=== PATIENT | female | born 1965 | race Two or more races ===

== ENCOUNTER 2020-08-28 05:16 | Emergency (ER) | payer MEDICAID, OTHER, SELFPAY ==
[~2020-08-28] VITALS: Ht 152.4 cm; Wt 73.9 kg
[2020-08-28] MEDS ORDERED: ONDANSETRON 2MG/ML, 2ML ONE (05:45)
[2020-08-28] MEDS ORDERED: MORPHINE SULFATE 4 MG/ML, 1ML ONE (05:45)
[2020-08-28] MEDS ORDERED: SODIUM CHLORIDE FLUSH 10ML SYR IVF ONE (06:00)
[2020-08-28] MEDS ORDERED: ONDANSETRON 2MG/ML, 2ML IVPush ONE (06:00)
[2020-08-28] MEDS ORDERED: MORPHINE SULFATE 4 MG/ML, 1ML IVPush PRN (06:00)
[2020-08-28 06:11] LABS: ALANINE AMINOTRANSFERASE 36 U/L (12-78); ALBUMIN 3.8 g/dL (3.4-5.0); ANION GAP 3 mmol/L (5-15); CALCIUM 8.9 mg/dL (8.5-10.1); CHLORIDE 111 mmol/L (98-107)
[2020-08-28 06:12] LABS: BASOPHILS % (AUTO) 1 % (0-1); EOSINOPHILS % (AUTO) 2 % (1-7); LYMPHOCYTES % (AUTO) 21 % (22-44); MEAN CORPUSCULAR HEMOGLOBIN 30.3 pg (27.0-34.8); MEAN CORPUSCULAR HGB CONC 33.4 g/dL (32.4-35.8); MEAN PLATELET VOLUME 7.5 fL (7.4-10.4); MONOCYTES % (AUTO) 7 % (2-9); NEUTROPHILS % (AUTO) 70 % (42-75); PLATELET COUNT 266 x10^3/uL (130-400); RED BLOOD COUNT 4.02 x10^6/uL (3.82-5.3); RED CELL DISTRIBUTION WIDTH 13.4 % (9.6-15.2)
[2020-08-28 06:13] LABS: ALKALINE PHOSPHATASE 74 U/L (45-117); BILIRUBIN,TOTAL 0.6 mg/dL (0.2-1.0); MD NO; TOTAL PROTEIN 6.9 g/dL (6.4-8.2)
--- NOTE | 2020-08-28 06:20 | NUR ---
PT HAS C/O ON AND OFF LEFT LOWER QUAD PAIN FOR THE LAST 1-2 WEEKS.
--- NOTE | 2020-08-28 07:02 | NUR ---
bedside report assuming care of pt, pt resting in bed.
--- NOTE | 2020-08-28 07:29 | NUR ---
pt up to bathroom with steady gait, vss, nadn, back to bed
[2020-08-28 07:42] LABS: MICROSCOPIC AUTO
--- NOTE | 2020-08-28 08:01 | NUR ---
pt to ct.
[2020-08-28 08:48] VITALS: BP 136/76
--- NOTE | 2020-08-28 08:48 | NUR ---
Patient given discharge instructions and they have confirmed that they understand the instructions. Patient ambulatory with steady gait.
== END 2020-08-28 08:50 | disposition home or self-care (01) ==
LOC: ED 06:37
DX: N10 Acute pyelonephritis (principal); R10.32 Left lower quadrant pain; I10 Essential (primary) hypertension; E11.9 Type 2 diabetes mellitus without complications
CPT/HCPCS: 36415; 74176; 80053; 81001; 85025; 87077; 87086; 87186; 93005; 96374; 96375; 99285; J2270; J2405

== ENCOUNTER 2020-08-31 18:12 | Emergency (ER) | payer SELFPAY ==
[~2020-08-31] VITALS: Ht 160 cm; Wt 73.6 kg
[2020-08-31] MEDS ORDERED: FOSFOMYCIN 3 GM PACKET PO ONE (19:00)
[2020-08-31] MEDS ORDERED: ERTAPENEM 1 GM in SODIUM CHLORIDE 0.9% 50 ML IV SCH (19:30)
--- NOTE | 2020-08-31 19:51 | NUR ---
PIV PLACED, LABS DRAWN AND 1 SET BLOOD CX. LAB TO DRAW SECOND SET. ERMD AT BEDSIDE FOR ASSESSMENT. ERMD STATES TO HOLD ABX AT THIS TIME/.
[2020-08-31 20:38] LABS: BASOPHILS % (AUTO) 1 % (0-1); EOSINOPHILS % (AUTO) 3 % (1-7); LYMPHOCYTES % (AUTO) 35 % (22-44); MEAN CORPUSCULAR HEMOGLOBIN 30.3 pg (27.0-34.8); MEAN CORPUSCULAR HGB CONC 33.6 g/dL (32.4-35.8); MEAN PLATELET VOLUME 7.4 fL (7.4-10.4); MONOCYTES % (AUTO) 6 % (2-9); NEUTROPHILS % (AUTO) 55 % (42-75); PLATELET COUNT 314 x10^3/uL (130-400); RED BLOOD COUNT 3.83 x10^6/uL (3.82-5.3); RED CELL DISTRIBUTION WIDTH 13.2 % (9.6-15.2)
[2020-08-31 20:39] LABS: MD NO
[2020-08-31 20:44] LABS: ALANINE AMINOTRANSFERASE 31 U/L (12-78); ALBUMIN 3.6 g/dL (3.4-5.0); ANION GAP 5 mmol/L (5-15); CALCIUM 9.2 mg/dL (8.5-10.1); CHLORIDE 111 mmol/L (98-107); CREATININE 0.72 mg/dL (0.55-1.02)
[2020-08-31 20:46] LABS: ALKALINE PHOSPHATASE 72 U/L (45-117); BILIRUBIN,TOTAL 0.2 mg/dL (0.2-1.0); TOTAL PROTEIN 6.9 g/dL (6.4-8.2)
--- NOTE | 2020-08-31 20:47 | NUR ---
HCRISTELD OK TO GIVE IV ABX AT THIS TIME.
[2020-08-31 20:58] VITALS: BP 139/78
--- NOTE | 2020-08-31 20:58 | NUR ---
IV ABX ADMIN PER JUL. 2 SETS BLOOD CX DRAWN PRIOR TO ADMIN. PT TO BE ADMIT.
[2020-08-31] MEDS ORDERED: METF500T17 PO (21:00)
== END 2020-08-31 21:43 | disposition home or self-care (01) ==
LOC: ED 19:38
DX: N39.0 Urinary tract infection, site not specified (principal); R30.0 Dysuria; I10 Essential (primary) hypertension; E11.9 Type 2 diabetes mellitus without complications
CPT/HCPCS: 36415; 80053; 85025; 87040; 96365; 99284; J1335